=== PATIENT | female | born 1945 | race Caucasian/White ===

== ENCOUNTER 2016-11-18 08:33 | Emergency (ER) | payer OTHER ==
[~2016-11-18] VITALS: Ht 165.1 cm; Wt 127.9 kg
[~2016-11-18 08:33] MED LIST: AMOX500C3 PO; FLVHFA44 INH; L-ME1CAP3 PO; LEVO125T72 PO; LISI40TA PO; NRN800 PO; TRIA37.5 PO
[2016-11-18 08:35] VITALS: TEMP 36.7; Ht 165.1 cm; Wt 127.9 kg
[2016-11-18] MEDS ORDERED: MDRDP21 (08:50)
--- NOTE | 2016-11-18 09:30 | EMERGENCY ROOM VISIT NOTE ---
History Report prepared by Nani: Tom Ann Under the Supervision of: Dr. Helena Booker M.D. First contact with patient: 08:46 Chief Complaint: OTHER COMPLAINT Stated Complaint: RINGING/BUZZING IN EARS, HEADACHE History of Present Illness The patient is a 71 year old female who presents to the Emergency Room with complaints of persistent ringing in her bilateral ears for the past three weeks. The patient also complains of a headache today. The patient experienced some dizziness two weeks ago, which resolved. She denies any visual changes. The patient is not sure what caused the ringing in her ears. The patient was on a six day Prednisone taper from her primary care office, which she just finished. She has not had any relief. The patient did not have any imaging studies when she was seen by her PCP's office. The patient is pre-diabetic and has a history of neuropathy. Source of History: patient Onset: three weeks Position: ear (bilateral) Quality: other (ringing) Timing: other (persistent) Associated Symptoms: + headache Review of Systems See HPI for pertinent positives & negatives. A total of 10 systems reviewed and were otherwise negative. Past Medical & Surgical Medical Problems: (1) CARDIOMEGALY (2) DIAB ELLEN WO COMPL, TYPE II OR UNSPEC TYPE, NOT UNCNTRLD (3) HYPERLIPIDEMIA NEC/NOS (4) HYPERTENSION NOS (5) HYPOTHYROIDISM NOS (6) OBESITY, NOS (7) Right Knee DJD Family History Cancer Gallbladder disease Social History Smoking Status: Never Smoker Alcohol Use: none Drug Use: none Marital Status: Housing Status: lives alone Occupation Status: retired Current/Historical Medications Scheduled Fluticasone Propionate (Flovent Hfa), 2 PUFFS INH HS Gabapentin (Gabapentin), 800 MG PO TID L-Methylfolate W/ Algae-Vitami (Metanx), 1 TAB PO BID Levothyroxine Sodium (Synthroid), 250 MCG PO 2XWK Levothyroxine Sodium (Synthroid), 125 MCG PO 5XD Lisinopril (Zestril), 40 MG PO QAM Prednisone (Prednisone), 10 MG PO DAILY Triamterene/Hctz (Dyazide 37.5MG/25MG), 1 CAP PO QAM Scheduled PRN Amoxicillin (Amoxil), 4 CAP PO UD PRN for PRE DENTAL PROCEDURE Lorazepam (Ativan), 0.5 MG PO TID PRN for TINNITUS Miscellaneous Medications Methylprednisolone (Methylprednisolone Dose P) Allergies Coded Allergies: Adhesives (Verified Adverse Reaction, Mild, RASH, 11/18/16) Physical Exam Vital Signs Date Time Temp Pulse Resp B/P Pulse Ox O2 Delivery O2 Flow Rate FiO2 11/18/16 14:48 62 17 183/87 95 11/18/16 13:49 65 16 185/92 96 Room Air 11/18/16 12:12 56 19 169/104 96 Room Air 11/18/16 11:19 51 16 153/87 95 Room Air 11/18/16 10:31 55 11/18/16 10:31 61 16 149/63 97 Room Air 11/18/16 09:44 56 15 166/85 96 Room Air 11/18/16 08:35 36.7 66 16 144/82 98 Room Air Physical Exam Vital signs reviewed. General: Well-appearing female, in no significant distress. HEENT: No scleral icterus, PERRLA, neck supple. Atraumatic. TMs are clear bilaterally. Cardiovascular: Regular rate and rhythm, no extra sounds. Pulmonary: Clear to auscultation bilaterally, normal work of breathing. Abdomen: Soft, nontender, nondistended, positive bowel sounds. Musculoskeletal: Atraumatic, no peripheral edema. Neurologic: Patient awake alert and oriented x 3, full strength in all 4 extremities. Cranial nerves 2 through 12 grossly intact. Skin: Warm, dry, no rash Medical Decision & Procedures ER Provider Diagnostic Interpretation: CT results as stated below per my review and radiologist interpretation: CT OF THE HEAD WITHOUT CONTRAST CLINICAL HISTORY: Tinnitus. Headache. COMPARISON STUDY: No previous studies for comparison. CT DOSE: 614.27 mGy.cm TECHNIQUE: Helical axial images of the head were obtained without IV contrast. Automated exposure control was utilized for the study. FINDINGS: No acute intracranial hemorrhage, midline shift or mass effect is present. Ventricular system is normal. The basilar cisterns are patent. There are no extra-axial collections. Rodriguez-white differentiation is maintained. There are no findings to suggest acute dural sinus thrombosis or acute territorial infarct. There is no calvarial fracture. Visualized portions of the sinuses and the mastoid air cells are clear with exception of a few opacified ethmoid air cells. IMPRESSION: No acute intracranial findings. Electronically signed by: Rashaun Sorensen M.D. 11/18/2016 10:46 AM Dictated Date/Time: 11/18/2016 10:44 AM Laboratory Results 11/18/16 10:12 Red Blood Count 4.59, Mean Corpuscular Volume 90.4, Mean Corpuscular Hemoglobin 31.2, Mean Corpuscular Hemoglobin Concent 34.5, Mean Platelet Volume 9.7, Neutrophils (%) (Auto) 62.7, Lymphocytes (%) (Auto) 26.8, Monocytes (%) (Auto) 7.9, Eosinophils (%) (Auto) 1.5, Basophils (%) (Auto) 0.8, Neutrophils # (Auto) 4.62, Lymphocytes # (Auto) 1.97, Monocytes # (Auto) 0.58, Eosinophils # (Auto) 0.11, Basophils # (Auto) 0.06 11/18/16 10:12 Test 11/18/16 10:12 11/18/16 11:18 White Blood Count 7.36 K/uL (4.8-10.8) Red Blood Count 4.59 M/uL (4.2-5.4) Hemoglobin 14.3 g/dL (12.0-16.0) Hematocrit 41.5 % (37-47) Mean Corpuscular Volume 90.4 fL (80-100) Mean Corpuscular Hemoglobin 31.2 pg (25-34) Mean Corpuscular Hemoglobin Concent 34.5 g/dl (32-36) Platelet Count 199 K/uL (130-400) Mean Platelet Volume 9.7 fL (7.4-10.4) Neutrophils (%) (Auto) 62.7 % Lymphocytes (%) (Auto) 26.8 % Monocytes (%) (Auto) 7.9 % Eosinophils (%) (Auto) 1.5 % Basophils (%) (Auto) 0.8 % Neutrophils # (Auto) 4.62 K/uL (1.4-6.5) Lymphocytes # (Auto) 1.97 K/uL (1.2-3.4) Monocytes # (Auto) 0.58 K/uL (0.11-0.59) Eosinophils # (Auto) 0.11 K/uL (0-0.5) Basophils # (Auto) 0.06 K/uL (0-0.2) RDW Standard Deviation 48.2 fL (36.4-46.3) RDW Coefficient of Variation 14.6 % (11.5-14.5) Immature Granulocyte % (Auto) 0.3 % Immature Granulocyte # (Auto) 0.02 K/uL (0.00-0.02) Anion Gap 8.0 mmol/L (3-11) Est Creatinine Clear Calc Drug Dose 73.2 ml/min Estimated GFR () 69.8 Estimated GFR (Non- 60.3 BUN/Creatinine Ratio 28.1 (10-20) Calcium Level 9.6 mg/dl (8.5-10.1) Magnesium Level 1.8 mg/dl (1.8-2.4) Total Bilirubin 0.5 mg/dl (0.2-1) Direct Bilirubin 0.1 mg/dl (0-0.2) Aspartate Amino Transf (AST/SGOT) 10 U/L (15-37) Alanine Aminotransferase (ALT/SGPT) 27 U/L (12-78) Alkaline Phosphatase 84 U/L (45-117) Total Creatine Kinase 64 U/L (26-192) Creatine Kinase MB 1.8 ng/ml (0.5-3.6) Creatine Kinase MB Ratio 2.8 (0-3.0) Total Protein 7.1 gm/dl (6.4-8.2) Albumin 3.9 gm/dl (3.4-5.0) Urine Color YELLOW Urine Appearance CLEAR (CLEAR) Urine pH 8.0 (4.5-7.5) Urine Specific [place] 1.005 (1.000-1.030) Urine Protein NEG (NEG) Urine Glucose (UA) NEG (NEG) Urine Ketones NEG (NEG) Urine Occult Blood NEG (NEG) Urine Nitrite NEG (NEG) Urine Bilirubin NEG (NEG) Urine Urobilinogen NEG (NEG) Urine Leukocyte Esterase TRACE (NEG) Urine WBC (Auto) 0 /hpf (0-5) Urine RBC (Auto) 0-4 /hpf (0-4) Urine Hyaline Casts (Auto) 0 /lpf (0-5) Urine Epithelial Cells (Auto) 0-5 /lpf (0-5) Urine Bacteria (Auto) NEG (NEG) Laboratory results per my review. Medications Administered Medications (Trade) Dose Ordered Sig/Darin Route Start Time Stop Time Status Last Admin Dose Admin Methylprednisolone Sodium Succinate (Solu-Medrol IV) 125 mg NOW STAT IV 2/7/17 10:43 11/18/16 10:44 DC 11/18/16 11:19 125 MG Lorazepam (Ativan Inj) 1 mg NOW STAT IV 11/18/16 13:37 11/18/16 13:38 DC 11/18/16 13:45 1 MG ED Course 0925: Past medical records reviewed. The patient was evaluated in room A11b. A complete history and physical examination was performed. 1043: Solu-Medrol 125 mg IV. 1330: Reassessed the patient. Discussed the findings with her. She verbalized understanding and agreement of the treatment plan. The patient is ready for discharge. 1337: Ativan 1 mg IV. Medical Decision Differential diagnosis: Etiologies such as migraine headache, meningitis, sinusitis, CO exposure, ICH, SAH, infection, tumor, headache, sinus thrombosis, arterial dissection, as well as others were entertained. This patient was evaluated and appeared to be in no significant distress. Physical examination was performed and reveals no specific findings. The patient was medicated with IV Solu-Medrol. CT scan of the head was performed and reveals no evidence of acute intracranial abnormality. The patient felt as though her symptoms improve temporarily but had returned. She was given IV Ativan. Laboratory work is fairly unrevealing. Patient was advised of the findings. She was discharged to the care of her family. She was placed on a prednisone taper and given when necessary Ativan. ENT follow-up was arranged with Dr. Stratton's office. She expressed understanding of the plan and agrees. She will return to the ER for worsening of symptoms or any medical concerns. Impression Primary Impression: Tinnitus, bilateral Scribe Attestation The scribe's documentation has been prepared under my direction and personally reviewed by me in its entirety. I confirm that the note above accurately reflects all work, treatment, procedures, and medical decision making performed by me. Departure Information Dispostion Home / Self-Care Prescriptions Lorazepam (ATIVAN) 0.5 Mg Tab 0.5 MG PO TID Y for TINNITUS MDD 3 TABS, #20 TAB Prov: Helena Booker M.D. 11/18/16 Prednisone (Prednisone) 10 Mg Tab 10 MG PO DAILY, #31 TAB Prednisone 40 mg for 4 days, 30 mg for 3 days, 20 mg for 2 days, 10 mg for 2 days. Prov: Helena Booker M.D. 11/18/16 Referrals Houston Nicolas M.D. (PCP) Forms HOME CARE DOCUMENTATION FORM, IMPORTANT VISIT INFORMATION, WORK / SCHOOL INSTRUCTIONS Patient Instructions My [facility], Tinnitus Additional Instructions Diagnosis: Tinnitus Prednisone 40 mg daily for 4 more days, 30 mg daily for 3 days, 20 mg daily for 2 days, 10 mg daily for 2 days. Ativan 0.5 mg 3 times daily as needed. Drink plenty of clear fluids. Follow-up with ENT as arranged by case management. Follow-up with your physician for reevaluation this week. Return to the ER for worsening of symptoms or any medical concerns.
[2016-11-18 10:20] LABS: BASO % 0.8 %; BASO ABS # 0.06 K/uL (0-0.2); COMPLETE YES; EOS % 1.5 %; HEMATOCRIT 41.5 % (37-47); IG% 0.3 %; LYMPH % 26.8 %; LYMPH ABS # 1.97 K/uL (1.2-3.4); MEAN CELL VOLUME 90.4 fL (80-100); MEAN CORPUSCULAR HEMOGLOBIN 31.2 pg (25-34); MEAN CORPUSCULAR HGB CONC 34.5 g/dl (32-36); MEAN PLATELET VOLUME 9.7 fL (7.4-10.4); MONO % 7.9 %; NEUT % 62.7 %; PLATELET COUNT 199 K/uL (130-400); RED BLOOD COUNT 4.59 M/uL (4.2-5.4); WHITE BLOOD COUNT 7.36 K/uL (4.8-10.8)
[2016-11-18] MEDS ORDERED: METHYLPREDNISOLONE 125 MG VIAL IV STA (10:43)
[2016-11-18 10:44] LABS: BUN/CREATININE RATIO 28.1 (10-20); CALCIUM 9.6 mg/dl (8.5-10.1); CREATININE 0.95 mg/dl (0.60-1.20); MAGNESIUM 1.8 mg/dl (1.8-2.4); POTASSIUM 4.1 mmol/L (3.5-5.1)
--- NOTE | 2016-11-18 10:48 | DIAGNOSTIC IMAGING REPORT ---
CT OF THE HEAD WITHOUT CONTRAST CLINICAL HISTORY: Tinnitus. Headache. COMPARISON STUDY: No previous studies for comparison. CT DOSE: 614.27 mGy.cm TECHNIQUE: Helical axial images of the head were obtained without IV contrast. Automated exposure control was utilized for the study. FINDINGS: No acute intracranial hemorrhage, midline shift or mass effect is present. Ventricular system is normal. The basilar cisterns are patent. There are no extra-axial collections. Rodriguez-white differentiation is maintained. There are no findings to suggest acute dural sinus thrombosis or acute territorial infarct. There is no calvarial fracture. Visualized portions of the sinuses and the mastoid air cells are clear with exception of a few opacified ethmoid air cells. IMPRESSION: No acute intracranial findings. Electronically signed by: Rashaun Sorensen M.D. 11/18/2016 10:46 AM Dictated Date/Time: 11/18/2016 10:44 AM
[2016-11-18 10:49] LABS: CKMB/CK RATIO 2.8 (0-3.0)
[2016-11-18 11:34] LABS: URINE APPEARANCE CLEAR (CLEAR); URINE BILIRUBIN NEG (NEG); URINE COLOR YELLOW; URINE EPITHELIAL CELL AUTO 0-5 /lpf (0-5); URINE NITRITE NEG (NEG); URINE SPECIFIC GRAVITY 1.005 (1.000-1.030); UROBILINOGEN NEG (NEG); ZZUR CULT IF INDIC CLEAN CATCH NO
[2016-11-18 11:39] LABS: MANUAL MICROSCOPIC REQUIRED? NO; REVIEW REQ? NO
[2016-11-18] MEDS ORDERED: LORAZEPAM 2 MG/ML 1 ML VIAL IV STA (13:37)
[2016-11-18] MEDS ORDERED: PRED10TA PO (14:27)
[2016-11-18] MEDS ORDERED: LORA-741 PO (14:27)
[2016-11-18 14:48] VITALS: BP 183/87; PULSE 62; O2SAT 95
[2017-03-03] MEDS ORDERED: OXYC-57 PO (10:06)
[2017-03-03] MEDS ORDERED: PRED10TA PO (10:06)
== END 2016-11-18 14:49 | disposition home or self-care (01) ==
LOC: C.EDB 08:34 → C.EDA 14:49
DX: H93.13 Tinnitus, bilateral (principal); E11.9 Type 2 diabetes mellitus without complications; E78.5 Hyperlipidemia, unspecified; E03.9 Hypothyroidism, unspecified

== ENCOUNTER 2017-01-23 08:38 | Emergency (ER) | payer OTHER ==
[~2017-01-23] VITALS: Ht 165.1 cm; Wt 132.0 kg
[~2017-01-23 08:38] MED LIST changes: +MDRDP21; +PRED10TA PO
[2017-01-23 08:43] VITALS: TEMP 36.4; Ht 165.1 cm; Wt 132.0 kg
[2017-01-23 09:38] LABS: BASO % 0.7 %; BASO ABS # 0.05 K/uL (0-0.2); COMPLETE YES; EOS % 3.1 %; HEMATOCRIT 39.4 % (37-47); IG% 0.1 %; LYMPH % 34.4 %; LYMPH ABS # 2.33 K/uL (1.2-3.4); MEAN CELL VOLUME 89.7 fL (80-100); MEAN CORPUSCULAR HEMOGLOBIN 30.8 pg (25-34); MEAN CORPUSCULAR HGB CONC 34.3 g/dl (32-36); MEAN PLATELET VOLUME 10.6 fL (7.4-10.4); MONO % 8.3 %; NEUT % 53.4 %; PLATELET COUNT 172 K/uL (130-400); RED BLOOD COUNT 4.39 M/uL (4.2-5.4); WHITE BLOOD COUNT 6.77 K/uL (4.8-10.8)
[2017-01-23 09:49] LABS: URINE APPEARANCE CLEAR (CLEAR); URINE BILIRUBIN NEG (NEG); URINE COLOR YELLOW; URINE EPITHELIAL CELL AUTO 20-30 /lpf (0-5); URINE NITRITE NEG (NEG); UROBILINOGEN NEG (NEG); ZZUR CULT IF INDIC CLEAN CATCH NO
--- NOTE | 2017-01-23 09:55 | DIAGNOSTIC IMAGING REPORT ---
CT OF THE ABDOMEN AND PELVIS WITHOUT CONTRAST, STONE PROTOCOL CLINICAL HISTORY: Right flank pain. COMPARISON STUDY: PET/CT November 22, 2014. TECHNIQUE: Helical axial images of the abdomen and pelvis were obtained without IV or oral contrast according to renal stone protocol. FINDINGS: Visualized portions of the lower chest demonstrate a stable 7 mm right lower lobe nodule since CT of November 09, 2014. This is benign given stability. Mild cardiomegaly is noted. No renal, ureteral or bladder calculi are present. Evaluation of the remainder of the abdomen and pelvis is suboptimal on this unenhanced exam. The appendix is normal. Unenhanced images of the liver, spleen, adrenal glands and pancreas are normal. There is no evidence for a bowel obstruction. There are post surgical finding within the spine. There is sigmoid diverticulosis without evidence for acute diverticulitis. There is no lymphadenopathy. IMPRESSION: 1. No urinary calculi or hydronephrosis. 2. No acute process within the abdomen or pelvis on unenhanced exam. 3. Sigmoid diverticulosis without evidence for acute diverticulitis. Electronically signed by: Rashaun Sorensen M.D. 01/23/2017 9:52 AM Dictated Date/Time: 01/23/2017 9:45 AM
[2017-01-23 10:01] LABS: MANUAL MICROSCOPIC REQUIRED? NO; REVIEW REQ? NO
[2017-01-23 10:39] LABS: ALKALINE PHOSPHATASE 84 U/L (45-117); ALT/SGPT 28 U/L (12-78); BLOOD UREA NITROGEN 21 mg/dl (7-18); BUN/CREATININE RATIO 19.1 (10-20); CALCIUM 9.6 mg/dl (8.5-10.1); CARBON DIOXIDE 28 mmol/L (21-32); CHLORIDE 107 mmol/L (98-107); GLUCOSE 156 mg/dl (70-99); SODIUM 143 mmol/L (136-145)
[2017-01-23] MEDS ORDERED: NORCO 5/325MG HOME PACK PO ONE (11:00)
[2017-01-23 11:28] VITALS: BP 133/82; PULSE 54; O2SAT 96
--- NOTE | 2017-01-23 15:47 | EMERGENCY ROOM VISIT NOTE ---
History Report prepared by Nani: Matt Rodriguez Under the Supervision of: Dr. Abraham Berg M.D. First contact with patient: 08:53 Chief Complaint: BACK PAIN Stated Complaint: BACK PAIN History of Present Illness The patient is a 71 year old female who presents to the Emergency Room with complaints of constant right sided back pain starting a few weeks ago. The patient currently rates her discomfort as an 8/10 in severity. The patient states that she has been having this back pain for a couple of weeks now. The patient states that this pain has gotten worse, and it is now also located in the center of her back. The patient states that she also had vertigo recently, and for this she was vomiting leading to some rib pain from vomiting. She additionally states that she has a history of fused lumbar vertebrae. The patient states that the pain is worsened when walking, and sometimes her breathing will make it hurt more as well. The patient states that she has been taking ibuprofen, and she was not doing anything to exacerbate the pain. The patient denies any history of kidney stones, and she denies any family history of back troubles or kidney stones. She also states that she has a history of being prediabetic. Pt denies trauma, LOC, headache, neck pain, fevers, chills, malaise, night sweats, weight loss, history of malignancy, chest pain, breathing difficulties, abdominal pain, saddle paraesthesias, bowel or bladder dysfunction, numbness, weakness, urinary symptoms, or other complaints. Source of History: patient Onset: a few weeks ago Position: back (lower) Symptom Intensity: 8/10 Timing: constant Modifying Factors (Worsening): other (walking) Associated Symptoms: + vomiting Review of Systems See HPI for pertinent positives and negatives. A total of ten systems were reviewed and were otherwise negative. Past Medical & Surgical Medical Problems: (1) CARDIOMEGALY (2) DIAB ELLEN WO COMPL, TYPE II OR UNSPEC TYPE, NOT UNCNTRLD (3) HYPERLIPIDEMIA NEC/NOS (4) HYPERTENSION NOS (5) HYPOTHYROIDISM NOS (6) OBESITY, NOS (7) Right Knee DJD Family History Cancer Gallbladder disease Social History Smoking Status: Never Smoker Alcohol Use: none Drug Use: none Marital Status: Housing Status: lives alone Occupation Status: retired Current/Historical Medications Scheduled Fluticasone Propionate (Flovent Hfa), 2 PUFFS INH HS Gabapentin (Gabapentin), 800 MG PO TID L-Methylfolate W/ Algae-Vitami (Metanx), 1 TAB PO BID Levothyroxine Sodium (Synthroid), 250 MCG PO 2XWK Levothyroxine Sodium (Synthroid), 125 MCG PO 5XD Lisinopril (Zestril), 40 MG PO QAM Prednisone (Prednisone), 10 MG PO DAILY Triamterene/Hctz (Dyazide 37.5MG/25MG), 1 CAP PO QAM Scheduled PRN Amoxicillin (Amoxil), 4 CAP PO UD PRN for PRE DENTAL PROCEDURE Allergies Coded Allergies: Adhesives (Verified Adverse Reaction, Mild, RASH, 11/18/16) Physical Exam Vital Signs Date Time Temp Pulse Resp B/P Pulse Ox O2 Delivery O2 Flow Rate FiO2 01/23/17 11:28 54 18 133/82 96 01/23/17 08:43 36.4 63 18 171/106 97 Room Air Physical Exam GENERAL: Awake, alert, well-appearing, in no distress HENT: Normocephalic, atraumatic. Oropharynx unremarkable. EYES: Normal conjunctiva. Sclera non-icteric. NECK: Supple. No nuchal rigidity. FROM. No JVD. RESPIRATORY: Clear to auscultation. CARDIAC: Regular rate, normal rhythm. Extremities warm and well perfused. Pulses equal. ABDOMEN: Soft, non-distended. No tenderness to palpation. No rebound or guarding. No masses. RECTAL: Deferred. MUSCULOSKELETAL: Tenderness to palpation in the right CVA are and right lower ribs. Chest examination reveals no tenderness. The back is symmetrical on inspection without obvious abnormality. No joint edema. LOWER EXTREMITIES: Calves are equal size bilaterally and non-tender. No edema. No discoloration. NEURO: Normal sensorium. No sensory or motor deficits noted. SKIN: No rash or jaundice noted. Medical Decision & Procedures ER Provider Diagnostic Interpretation: Radiology results as stated below per my review and radiologist interpretation CT OF THE ABDOMEN AND PELVIS WITHOUT CONTRAST, STONE PROTOCOL CLINICAL HISTORY: Right flank pain. COMPARISON STUDY: PET/CT November 22, 2014. TECHNIQUE: Helical axial images of the abdomen and pelvis were obtained without IV or oral contrast according to renal stone protocol. FINDINGS: Visualized portions of the lower chest demonstrate a stable 7 mm right lower lobe nodule since CT of November 09, 2014. This is benign given stability. Mild cardiomegaly is noted. No renal, ureteral or bladder calculi are present. Evaluation of the remainder of the abdomen and pelvis is suboptimal on this unenhanced exam. The appendix is normal. Unenhanced images of the liver, spleen, adrenal glands and pancreas are normal. There is no evidence for a bowel obstruction. There are post surgical finding within the spine. There is sigmoid diverticulosis without evidence for acute diverticulitis. There is no lymphadenopathy. IMPRESSION: 1. No urinary calculi or hydronephrosis. 2. No acute process within the abdomen or pelvis on unenhanced exam. 3. Sigmoid diverticulosis without evidence for acute diverticulitis. Electronically signed by: Rashaun Sorensen M.D. 01/23/2017 9:52 AM Dictated Date/Time: 01/23/2017 9:45 AM Laboratory Results 01/23/17 09:20 Red Blood Count 4.39, Mean Corpuscular Volume 89.7, Mean Corpuscular Hemoglobin 30.8, Mean Corpuscular Hemoglobin Concent 34.3, Mean Platelet Volume 10.6, Neutrophils (%) (Auto) 53.4, Lymphocytes (%) (Auto) 34.4, Monocytes (%) (Auto) 8.3, Eosinophils (%) (Auto) 3.1, Basophils (%) (Auto) 0.7, Neutrophils # (Auto) 3.61, Lymphocytes # (Auto) 2.33, Monocytes # (Auto) 0.56, Eosinophils # (Auto) 0.21, Basophils # (Auto) 0.05 01/23/17 09:20 Test 01/23/17 09:20 White Blood Count 6.77 K/uL (4.8-10.8) Red Blood Count 4.39 M/uL (4.2-5.4) Hemoglobin 13.5 g/dL (12.0-16.0) Hematocrit 39.4 % (37-47) Mean Corpuscular Volume 89.7 fL (80-100) Mean Corpuscular Hemoglobin 30.8 pg (25-34) Mean Corpuscular Hemoglobin Concent 34.3 g/dl (32-36) Platelet Count 172 K/uL (130-400) Mean Platelet Volume 10.6 fL (7.4-10.4) Neutrophils (%) (Auto) 53.4 % Lymphocytes (%) (Auto) 34.4 % Monocytes (%) (Auto) 8.3 % Eosinophils (%) (Auto) 3.1 % Basophils (%) (Auto) 0.7 % Neutrophils # (Auto) 3.61 K/uL (1.4-6.5) Lymphocytes # (Auto) 2.33 K/uL (1.2-3.4) Monocytes # (Auto) 0.56 K/uL (0.11-0.59) Eosinophils # (Auto) 0.21 K/uL (0-0.5) Basophils # (Auto) 0.05 K/uL (0-0.2) RDW Standard Deviation 46.0 fL (36.4-46.3) RDW Coefficient of Variation 14.1 % (11.5-14.5) Immature Granulocyte % (Auto) 0.1 % Immature Granulocyte # (Auto) 0.01 K/uL (0.00-0.02) Urine Color YELLOW Urine Appearance CLEAR (CLEAR) Urine pH 5.0 (4.5-7.5) Urine Specific [place] 1.010 (1.000-1.030) Urine Protein NEG (NEG) Urine Glucose (UA) NEG (NEG) Urine Ketones NEG (NEG) Urine Occult Blood NEG (NEG) Urine Nitrite NEG (NEG) Urine Bilirubin NEG (NEG) Urine Urobilinogen NEG (NEG) Urine Leukocyte Esterase MODERATE (NEG) Urine WBC (Auto) 1-5 /hpf (0-5) Urine RBC (Auto) 0-4 /hpf (0-4) Urine Hyaline Casts (Auto) 0 /lpf (0-5) Urine Epithelial Cells (Auto) 20-30 /lpf (0-5) Urine Bacteria (Auto) NEG (NEG) Anion Gap 8.0 mmol/L (3-11) Est Creatinine Clear Calc Drug Dose 64.4 ml/min Estimated GFR () 58.5 Estimated GFR (Non- 50.5 BUN/Creatinine Ratio 19.1 (10-20) Calcium Level 9.6 mg/dl (8.5-10.1) Total Bilirubin 0.4 mg/dl (0.2-1) Direct Bilirubin mg/dl (0-0.2) Aspartate Amino Transf (AST/SGOT) U/L (15-37) Alanine Aminotransferase (ALT/SGPT) 28 U/L (12-78) Alkaline Phosphatase 84 U/L (45-117) Total Protein 6.9 gm/dl (6.4-8.2) Albumin 3.7 gm/dl (3.4-5.0) Lipase 237 U/L (73-393) Laboratory results reviewed by me Medications Administered Medications (Trade) Dose Ordered Sig/Darin Route Start Time Stop Time Status Last Admin Dose Admin Acetaminophen/ Hydrocodone Bitart ([place] 5/325mg Home Pack) 1 homepack UD ONCE PO 01/23/17 11:00 01/23/17 11:01 DC 01/23/17 11:20 1 HOMEPACK ED Course 0906: The patient was evaluated in room B10. A complete history and physical exam was performed. 1047: I reevaluated the patient. Discussed results and discharge instructions: She verbalized understanding and agreement. The patient is ready for discharge. 1100: [place] 3/325mg 1 Home Pack PO Medical Decision Triage Nursing notes reviewed. The patient's presentation and history were concerning for right flank pain. Etiologies such as renal colic, musculoskeletal, appendicitis, diverticulitis, mesenteric ischemia, aortic pathology, infections, inflammatory bowel disease, PUD, biliary pathology, UTI, as well as others were entertained. The patient was evaluated. She was uncomfortable but declined analgesia. A CBC , urinalysis, chemistry panel, LFTs, and lipase were unremarkable minus the potassium as this was hemolyzed. She has normal renal function and has no reason for potassium abnormalities of the patient did not have a repeat lab stick. CT imaging was performed and was unremarkable. On reassessment the patient was informed. I discussed analgesia. The patient did not want a big prescription. She notes having back issues before and has done okay with occasional doses of prednisone which she has at home. I did advise her to be careful with this as her glucose is minimally elevated. She is aware of the hyperglycemic issues with prednisone. The patient was given a home pack [place] which she accepted. If she worsens at all she will come back to the department for reevaluation. I gave my usual and customary discussion regarding this issue. By the evaluation outlined above other emergent etiologies such as those listed in the differential, as well as others, were deemed relatively unlikely. The patient was informed about the findings as listed above. All questions were answered and she was pleased with the treatment. Return instructions were outlined and the patient was discharged in stable condition. The patient was referred to her PCP for follow-up next week for a recheck of the current condition. The chart was completed utilizing [employer] Speech voice recognition software. Grammatical errors, random word insertions, pronoun errors, and incomplete sentences are an occasional consequence of this system due to software limitations, ambient noise, and hardware issues. Any formal questions or concerns about the content, text, or information contained within the body of this dictation should be directly addressed to the physician for clarification. Impression Primary Impression: Right flank pain Scribe Attestation The scribe's documentation has been prepared under my direction and personally reviewed by me in its entirety. I confirm that the note above accurately reflects all work, treatment, procedures, and medical decision making performed by me. Departure Information Dispostion Home / Self-Care Referrals Houston Nicolas M.D. (PCP) Forms HOME CARE DOCUMENTATION FORM, IMPORTANT VISIT INFORMATION Patient Instructions My [facility] Additional Instructions BACK PAIN INSTRUCTIONS: Hydrocodone/acetaminophen 5/325mg: Take 1-2 pills every 6 hours as needed for pain. Avoid additional Acetaminophen/Tylenol, alcohol, operating machinery or dangerous equipment, working on ladders or roofs, DRIVING, or situations where being under the influence may be dangerous. It is recommended to use a stool softener such as Colace, 100mg twice daily while taking this medication to avoid constipation. Ibuprofen(Motrin, Advil) may be used for fever or pain. Use 600mg every six hours as needed. Take with food. Avoid using more than 2400mg in a 24 hour period. Do not use 2400mg per day for more than three consecutive days without physician direction. Prolonged inappropriate use can lead to stomach upset or ulcers. This medication can be taken if you need to drive, work, or perform activities which may be dangerous when taking narcotic pain medication. (AND/OR) Acetaminophen(Tylenol) may be used for fever or pain. Use 1000mg every six hours as needed. Avoid using more than 4000mg in a 24 hour period. This medication can be taken if you need to drive, work, or perform activities which may be dangerous when taking narcotic pain medication. Rest and avoid heavy lifting until your symptoms resolve and then gradually return to full activity. A good rule of thumb is if it hurts your back to perform a certain activity, then it should be avoided until you are healthy again. A heating pad, warm compresses, or a hot shower may help with tight muscles and can be done several times a day as needed. Continue current medications. Return to the ER immediately for any numbness, tingling, severe pain, loss of control of your bowels or bladder, inability to walk, or as needed. Follow up with your primary care physician next week for a recheck of your current condition.
[2017-03-03] MEDS ORDERED: OXYC-57 PO (10:06)
[2017-03-03] MEDS ORDERED: PRED10TA PO (10:06)
== END 2017-01-23 11:30 | disposition home or self-care (01) ==
LOC: C.EDB 08:40
DX: R10.30 Lower abdominal pain, unspecified (principal); Z98.1 Arthrodesis status; E11.9 Type 2 diabetes mellitus without complications; E78.5 Hyperlipidemia, unspecified; I10 Essential (primary) hypertension; E03.9 Hypothyroidism, unspecified; E66.9 Obesity, unspecified; Z68.42 Body mass index [BMI] 45.0-49.9, adult; Z80.9 Family history of malignant neoplasm, unspecified; Z79.899 Other long term (current) drug therapy

== ENCOUNTER → 2017-03-05 | Day surgery (SDC) | payer OTHER ==
[2017-03-03 10:06] VITALS: Ht 168.9 cm; Wt 125.0 kg
[~2017-03-05] VITALS: Ht 168.9 cm; Wt 125.0 kg
[~2017-03-05] MED LIST changes: +DEXAMETHASONE SOD INJ 4 MG/ML VIAL ONE; +LIDOCAINE HCL 1% MPF 5 ML VIAL ONE; -MDRDP21; +OXYC-57 PO
--- NOTE | 2017-03-05 08:46 | History & Physical Bridge - [place] ---
H&P Re-Evaluation Bridge Note: I have examined the patient, reviewed the History & Physical and in the interval since the performance of the History & Physical I have noted the following changes of clinical significance: No changes noted
--- NOTE | 2017-03-05 09:09 | Discharge Instructions-SurgCtr ---
Discharge Instructions Date of Service March 05, 2017. Visit Reason for Visit: Spondylolisthesis Discharge Discharge Diagnosis / Problem: stenosis Discharge Goals Goal(s): Decrease discomfort Activity Recommendations Activity Limitations: resume your previous activity Anesthesia . Post Anesthesia Instructions: If you have had General Anesthesia or IV Sedation: * Do not drive today. * Resume driving when surgeon permits. * Do not make important decisions or sign legal documents today. * Call surgeon for: 1. Temperature elevations greater than 101 degrees F. 2. Uncontrollable pain. 3. Excessive bleeding. 4. Persistent nausea and vomiting. 5. Medication intolerance (nausea, vomiting or rash). * For nausea and vomiting use only clear liquids such as: tea, soda, bouillon until nausea subsides, then gradually increase diet as tolerated. * If you have any concerns or questions, call your surgeon's office. If physician is unavailable and it is an emergency, call 911 or go to the nearest emergency room. . Diet Recommendations Home Diet: no limitations Procedures Procedures Performed: L3-4 EPIDRURAL STEROID INJECTION Pending Studies Studies pending at discharge: no Medical Emergencies . Who to Call and When: Medical Emergencies: If at any time you feel your situation is an emergency, please call 911 immediately. . Non-Emergent Contact Non-Emergency issues call your: Surgeon Call Non-Emergent contact if: your pain is concerning you . . "Provider Documentation" section prepared by Abraham iHll. .
[2017-03-05 09:10] VITALS: BP 156/83; PULSE 58; TEMP 36.7; O2SAT 95
--- NOTE | 2017-03-05 09:10 | [facility] Post Operative Brief Note ---
Immediate Operative Summary Operative Date March 05, 2017. Pre-Operative Diagnosis SPONDYLOLITHESIS Post-Operative Diagnosis SAME Procedure(s) Performed L3-4 EPIDRURAL STEROID INJECTION Surgeon DR. Shi CHANG Break Up Worker Surgeon(s) 0 Estimated Blood Loss 0 Findings stenosis Complication(s) None Disposition Recovery Room / PACU
--- NOTE | 2017-03-05 09:35 | OPERATIVE REPORT ---
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 POSTOPERATIVE DIAGNOSIS: Same. PROCEDURE: Epidural steroid injection L3-4. SURGEON: Dr. Hill. MEDICAL OFFICE COORDINATOR: None. COMPLICATIONS: 0. BLOOD LOSS: 0. PROCEDURE: The patient was taken to [facility] minor procedure room at the surgical center, placed prone, scrubbed and prepped in the usual sterile fashion. We draped her off sterile. We used biplanar imaging. We were to advance the 22 gauge Tuohy needle to the epidural space at L3-L4. The patient tolerated well. We injected 2 mL of dexamethasone using an air acceptance or volume acceptance technique. She tolerated it well. Returned to PACU stable. No complications. I attest to the content of the Intraoperative Record and any orders documented therein. Any exceptio ns are noted below.
== END | disposition home or self-care (01) ==
LOC: X.SURG 07:44
PROVIDERS: ATTEND Orthopaedic Surgery Orthopaedic Surgery of the Spine
DX: M48.06 Spinal stenosis, lumbar region (principal)

== ENCOUNTER → 2017-03-20 | Outpatient (CLI) | payer OTHER ==
[~2017-03-20] MED LIST changes: -DEXAMETHASONE SOD INJ 4 MG/ML VIAL ONE; -LIDOCAINE HCL 1% MPF 5 ML VIAL ONE
[2017-03-20 12:22] LABS: ESTIMATED AVERAGE GLUCOSE 143 mg/dl; HA1C FLAG Normal (Normal)
[2017-03-20 12:49] LABS: ALKALINE PHOSPHATASE 78 U/L (45-117); ALT/SGPT 32 U/L (12-78); AST/SGOT 21 U/L (15-37); BLOOD UREA NITROGEN 21 mg/dl (7-18); BUN/CREATININE RATIO 18.8 (10-20); CALCIUM 9.4 mg/dl (8.5-10.1); CARBON DIOXIDE 23 mmol/L (21-32); CHLORIDE 106 mmol/L (98-107); CHOLESTEROL 154 mg/dl (0-200); GLUCOSE 183 mg/dl (70-99); SODIUM 141 mmol/L (136-145)
[2017-03-20 13:00] LABS: CHOLESTEROL/HDL RATIO 3.7; HDL CHOLESTEROL 42 mg/dl; LDL CHOLESTEROL CALCULATED 67 mg/dl; THYROID STIMULATING HORMONE 0.571 uIu/ml (0.300-4.500); TRIGLYCERIDES 224 mg/dl (0-150); VERY LOW DENSITY LIPOPROT CALC 45 mg/dl
== END | disposition home or self-care (01) ==
LOC: C.LABBFT 08:22
PROVIDERS: ATTEND Internal Medicine
DX: E11.9 Type 2 diabetes mellitus without complications (principal); E03.9 Hypothyroidism, unspecified

== ENCOUNTER 2017-05-05 12:21 | Emergency (ER) | payer OTHER ==
[~2017-05-05] VITALS: Ht 166.4 cm; Wt 129.5 kg
[~2017-05-05 12:21] MED LIST changes: -OXYC-57 PO
[2017-05-05 12:23] VITALS: TEMP 36.6; Ht 166.4 cm; Wt 129.5 kg
[2017-05-05 13:22] LABS: BASO % 0.6 %; BASO ABS # 0.06 K/uL (0-0.2); COMPLETE YES; EOS % 2.2 %; HEMATOCRIT 45.7 % (37-47); IG% 0.2 %; LYMPH % 29.9 %; LYMPH ABS # 2.81 K/uL (1.2-3.4); MEAN CORPUSCULAR HEMOGLOBIN 30.9 pg (25-34); MEAN CORPUSCULAR HGB CONC 32.8 g/dl (32-36); MEAN PLATELET VOLUME 9.8 fL (7.4-10.4); MONO % 8.7 %; NEUT % 58.4 %; PLATELET COUNT 224 K/uL (130-400); RED BLOOD COUNT 4.86 M/uL (4.2-5.4); WHITE BLOOD COUNT 9.41 K/uL (4.8-10.8)
--- NOTE | 2017-05-05 13:22 | EMERGENCY ROOM VISIT NOTE ---
History First contact with patient: 12:38 Chief Complaint: VAGINAL BLEEDING Stated Complaint: VAGINAL BLEEDING History of Present Illness The patient is a 72 year old female who presents to the Emergency Room with complaints of vaginal bleeding. The patient states that she noticed vaginal bleeding last night. She states that the airway is a small blood clot. She reports minimal sensation of cramping in the pelvis but denies any true pain. The patient experienced menopause 16 years ago and has not had any vaginal bleeding since. She has continued regular gynecological care and has had negative Pap smears. The patient denies any fever, chest pain or trouble breathing. She denies any urinary symptoms. She denies any hematochezia or melena. She denies any personal or family history of gynecological cancer. She has had a periumbilical hernia repair. Review of Systems A 10 system review of systems was completed with positives and pertinent negatives listed in the HPI. Past Medical/Surgical History Medical Problems: (1) Asthma (2) CARDIOMEGALY (3) DIAB ELLEN WO COMPL, TYPE II OR UNSPEC TYPE, NOT UNCNTRLD (4) Elbow fracture, right (5) HYPERLIPIDEMIA NEC/NOS (6) HYPERTENSION NOS (7) HYPOTHYROIDISM NOS (8) OBESITY, NOS (9) Right Knee DJD Surgical Problems: (1) H/O umbilical hernia repair (2) H/O wisdom tooth extraction (3) S/p total knee replacement, bilateral (4) Tarsal tunnel syndrome Family History Cancer Gallbladder disease Social History Smoking Status: Never Smoker Alcohol Use: none Drug Use: none Marital Status: Housing Status: lives alone Occupation Status: retired Current/Historical Medications Scheduled Fluticasone Propionate (Flovent Hfa), 2 PUFFS INH HS Gabapentin (Gabapentin), 800 MG PO BID L-Methylfolate W/ Algae-Vitami (Metanx), 1 TAB PO BID Levothyroxine Sodium (Synthroid), 250 MCG PO 2XWK Levothyroxine Sodium (Synthroid), 125 MCG PO 5XD Lisinopril (Zestril), 40 MG PO QAM Triamterene/Hctz (Dyazide 37.5MG/25MG), 1 CAP PO QAM Scheduled PRN Amoxicillin (Amoxil), 4 CAP PO UD PRN for PRE DENTAL PROCEDURE Prednisone Tab (Prednisone), 10 MG PO DIRECTED PRN for Pain Physical Exam Vital Signs Date Time Temp Pulse Resp B/P (MAP) Pulse Ox O2 Delivery O2 Flow Rate FiO2 05/05/17 14:04 51 18 147/89 98 05/05/17 12:23 36.6 68 16 139/79 95 Room Air Physical Exam VITALS: Vitals are noted on the nurse's note and reviewed by myself. Vital signs stable. GENERAL: This is a 72-year-old female, in no acute distress, nondiaphoretic, well-developed well-nourished. SKIN: The skin was without rashes, erythema, edema, or bruising. There is no tenting of the skin. Capillary reflex less than 2 seconds. HEAD: Normocephalic atraumatic. EARS: External auditory canals clear, tympanic membranes pearly thompson without erythema or effusion bilaterally. EYES: Pupils equal round and reactive to light and accommodation. Conjunctivae without injection, sclerae without icterus. Extraocular movements intact. NOSE: Patent, turbinates without inflammation or discharge. MOUTH: Mucous membranes moist. Tonsils are not enlarged. Pharynx without erythema or exudate. Uvula midline. Airway patent. Tongue does not deviate. NECK: Supple without nuchal rigidity. No JVD. HEART: Regular rate and rhythm without murmurs gallops or rubs. LUNGS: Clear to auscultation bilaterally without wheezes, rales or rhonchi. No retractions or accessory muscle use. ABDOMEN: Positive bowel sounds x 4. Soft, nontender, without masses or organomegaly. MUSCULOSKELETAL: No muscle atrophy, erythema, or edema noted. Full range of motion in all extremities. Strength 5/5 throughout. NEURO: Patient was alert and oriented to person place and time. No focal neurological deficits. Medical Decision & Procedures ER Provider Diagnostic Interpretation: PELVIC COMPLETE NON OB CLINICAL HISTORY: postmenopausal vaginal bleeding BLEEDING COMPARISON STUDY: None FINDINGS: The uterus measured 7.5 cm.. Several small myometrial fibroids measuring 1.1 and 1.4 cm. The endometrial stripe measured 6 mm.. The right ovary measured not well seen. The left ovary measured not well seen. There is no ultrasonographic evidence of ovarian torsion. It should be noted that ovarian torsion can be present with normal Doppler ultrasonographic findings. There was no evidence of pathologic free pelvic fluid. IMPRESSION: 2 small uterine fibroids. Mild endometrial prominence for age at 6 mm. Ovarian atrophy Laboratory Results 05/05/17 13:08 Red Blood Count 4.86, Mean Corpuscular Volume 94.0, Mean Corpuscular Hemoglobin 30.9, Mean Corpuscular Hemoglobin Concent 32.8, Mean Platelet Volume 9.8, Neutrophils (%) (Auto) 58.4, Lymphocytes (%) (Auto) 29.9, Monocytes (%) (Auto) 8.7, Eosinophils (%) (Auto) 2.2, Basophils (%) (Auto) 0.6, Neutrophils # (Auto) 5.49, Lymphocytes # (Auto) 2.81, Monocytes # (Auto) 0.82, Eosinophils # (Auto) 0.21, Basophils # (Auto) 0.06 05/05/17 13:08 Test 05/05/17 13:08 05/05/17 13:10 White Blood Count 9.41 K/uL (4.8-10.8) Red Blood Count 4.86 M/uL (4.2-5.4) Hemoglobin 15.0 g/dL (12.0-16.0) Hematocrit 45.7 % (37-47) Mean Corpuscular Volume 94.0 fL (80-100) Mean Corpuscular Hemoglobin 30.9 pg (25-34) Mean Corpuscular Hemoglobin Concent 32.8 g/dl (32-36) Platelet Count 224 K/uL (130-400) Mean Platelet Volume 9.8 fL (7.4-10.4) Neutrophils (%) (Auto) 58.4 % Lymphocytes (%) (Auto) 29.9 % Monocytes (%) (Auto) 8.7 % Eosinophils (%) (Auto) 2.2 % Basophils (%) (Auto) 0.6 % Neutrophils # (Auto) 5.49 K/uL (1.4-6.5) Lymphocytes # (Auto) 2.81 K/uL (1.2-3.4) Monocytes # (Auto) 0.82 K/uL (0.11-0.59) Eosinophils # (Auto) 0.21 K/uL (0-0.5) Basophils # (Auto) 0.06 K/uL (0-0.2) RDW Standard Deviation 49.6 fL (36.4-46.3) RDW Coefficient of Variation 14.4 % (11.5-14.5) Immature Granulocyte % (Auto) 0.2 % Immature Granulocyte # (Auto) 0.02 K/uL (0.00-0.02) Prothrombin Time 10.2 SECONDS (9.0-12.0) Prothromb Time International Ratio 1.0 (0.9-1.1) Activated Partial Thromboplast Time 24.0 SECONDS (21.0-31.0) Partial Thromboplastin Ratio 0.9 Anion Gap 6.0 mmol/L (3-11) Est Creatinine Clear Calc Drug Dose 63.3 ml/min Estimated GFR () 58.1 Estimated GFR (Non- 50.1 BUN/Creatinine Ratio 19.5 (10-20) Calcium Level 10.6 mg/dl (8.5-10.1) Total Bilirubin 0.6 mg/dl (0.2-1) Aspartate Amino Transf (AST/SGOT) 22 U/L (15-37) Alanine Aminotransferase (ALT/SGPT) 33 U/L (12-78) Alkaline Phosphatase 79 U/L (45-117) Total Protein 7.6 gm/dl (6.4-8.2) Albumin 4.1 gm/dl (3.4-5.0) Globulin 3.5 gm/dl (2.5-4.0) Albumin/Globulin Ratio 1.2 (0.9-2) Urine Color YELLOW Urine Appearance CLEAR (CLEAR) Urine pH 6.5 (4.5-7.5) Urine Specific [place] 1.018 (1.000-1.030) Urine Protein NEG (NEG) Urine Glucose (UA) NEG (NEG) Urine Ketones TRACE (NEG) Urine Occult Blood 2+ (NEG) Urine Nitrite NEG (NEG) Urine Bilirubin NEG (NEG) Urine Urobilinogen NEG (NEG) Urine Leukocyte Esterase NEG (NEG) Urine WBC (Auto) 1-5 /hpf (0-5) Urine RBC (Auto) 10-30 /hpf (0-4) Urine Hyaline Casts (Auto) 0 /lpf (0-5) Urine Epithelial Cells (Auto) 10-20 /lpf (0-5) Urine Bacteria (Auto) NEG (NEG) ED Course The patient was seen and examined. Previous visits were reviewed. The patient does not have a fever or leukocytosis. She does not have any significant electrolyte abnormality. INR was 1.0. Urinalysis reveals hematuria and is likely contamination. Ultrasound was obtained as above. The patient has what appears to be 2 small fibroids. The endometrial stripe was 6 mm. The patient presents to the emergency department with painless postmenopausal vaginal bleeding. The patient appears to have 2 small fibroids and this may account for the bleeding. She is hemodynamically stable. She does not have any significant discomfort. I discussed the case with Dr. Teixeira. He recommends that she follow-up with the office and she may need a biopsy. The patient was advised of this and instructed to call today or tomorrow. She should return to the ER with any worsening symptoms, lightheadedness, dizziness, worsening bleeding, pain The patient was also seen and examined by who agrees with the assessment and treatment plan. Medical Decision The differential diagnosis includes urinary tract infection, kidney stone, neoplasm, fibroid, laceration, anemia, among others Blood Pressure Screening Patient's blood pressure: Elevated blood pressure Blood pressure disposition: Elevated BP felt to be situational Impression Primary Impression: Uterine fibroid Additional Impression: Post-menopausal bleeding Departure Information Dispostion Home / Self-Care Condition GOOD Referrals [place] Nicolas M.D. (PCP) Shannon Teixeira M.D. Patient Instructions ED Fibroids, My [facility] Additional Instructions Contact DESIGN PRINTER [employer]ON today to schedule a follow up appointment for further evaluation and management Return with worsening bleeding, pain, generalized worsening symptoms Problem Qualifiers Primary Impression: Uterine fibroid
[2017-05-05 13:30] LABS: URINE APPEARANCE CLEAR (CLEAR); URINE BILIRUBIN NEG (NEG); URINE COLOR YELLOW; URINE NITRITE NEG (NEG); URINE PH 6.5 (4.5-7.5); URINE SPECIFIC GRAVITY 1.018 (1.000-1.030); UROBILINOGEN NEG (NEG); ZZUR CULT IF INDIC CLEAN CATCH NO
[2017-05-05 13:39] LABS: BUN/CREATININE RATIO 19.5 (10-20); CALCIUM 10.6 mg/dl (8.5-10.1); CREATININE 1.1 mg/dl (0.60-1.20); POTASSIUM 3.7 mmol/L (3.5-5.1)
[2017-05-05 13:40] LABS: MANUAL MICROSCOPIC REQUIRED? NO; REVIEW REQ? NO
[2017-05-05 13:42] LABS: ALB/GLOB RATIO 1.2 (0.9-2)
[2017-05-05 13:54] LABS: PARTIAL THROMBOPLASTIN RATIO 0.9; PROTHROMBIN TIME (PATIENT) 10.2 SECONDS (9.0-12.0)
--- NOTE | 2017-05-05 14:03 | DIAGNOSTIC IMAGING REPORT ---
PELVIC COMPLETE NON OB CLINICAL HISTORY: postmenopausal vaginal bleeding BLEEDING COMPARISON STUDY: None FINDINGS: The uterus measured 7.5 cm.. Several small myometrial fibroids measuring 1.1 and 1.4 cm. The endometrial stripe measured 6 mm.. The right ovary measured not well seen. The left ovary measured not well seen. There is no ultrasonographic evidence of ovarian torsion. It should be noted that ovarian torsion can be present with normal Doppler ultrasonographic findings. There was no evidence of pathologic free pelvic fluid. IMPRESSION: 2 small uterine fibroids. Mild endometrial prominence for age at 6 mm. Ovarian atrophy The above report was generated using voice recognition software. It may contain grammatical, syntax or spelling errors. Electronically signed by: Carlin Bajwa M.D. 05/05/2017 2:01 PM Dictated Date/Time: 05/05/2017 2:00 PM
[2017-05-05 14:04] VITALS: BP 147/89; PULSE 51; O2SAT 98
--- NOTE | 2017-05-05 14:10 | EMERGENCY ROOM VISIT NOTE ---
ED Visit Note First contact with patient: 12:28 I have seen and examined this patient with Lenora Narvaez and generally agree with the treatment plan as discussed. Problem List Medical Problems: (1) Asthma Status: Chronic (2) CARDIOMEGALY Status: Chronic (3) DIAB ELLEN WO COMPL, TYPE II OR UNSPEC TYPE, NOT UNCNTRLD Status: Chronic (4) Elbow fracture, right Status: Resolved (5) HYPERLIPIDEMIA NEC/NOS Status: Chronic (6) HYPERTENSION NOS Status: Chronic (7) HYPOTHYROIDISM NOS Status: Chronic (8) OBESITY, NOS Status: Chronic Surgical Problems: (1) H/O umbilical hernia repair Status: Resolved (2) H/O wisdom tooth extraction Status: Resolved (3) S/p total knee replacement, bilateral Status: Resolved (4) Tarsal tunnel syndrome Status: Resolved Current/Historical Medications Scheduled Fluticasone Propionate (Flovent Hfa), 2 PUFFS INH HS Gabapentin (Gabapentin), 800 MG PO BID L-Methylfolate W/ Algae-Vitami (Metanx), 1 TAB PO BID Levothyroxine Sodium (Synthroid), 250 MCG PO 2XWK Levothyroxine Sodium (Synthroid), 125 MCG PO 5XD Lisinopril (Zestril), 40 MG PO QAM Triamterene/Hctz (Dyazide 37.5MG/25MG), 1 CAP PO QAM Scheduled PRN Amoxicillin (Amoxil), 4 CAP PO UD PRN for PRE DENTAL PROCEDURE Prednisone Tab (Prednisone), 10 MG PO DIRECTED PRN for Pain Allergies Coded Allergies: Latex1 -Allergic Contact Dermititis (Unverified Allergy, Intermediate, LITE RED RASH, 05/05/17) NO KNOWN DRUG ALLERGIES (Verified Allergy, Unknown, ., 03/05/17) Adhesives (Verified Adverse Reaction, Mild, RASH, 03/05/17) Vital Signs Date Time Temp Pulse Resp B/P (MAP) Pulse Ox O2 Delivery O2 Flow Rate FiO2 05/05/17 14:04 51 18 147/89 98 05/05/17 12:23 36.6 68 16 139/79 95 Room Air Laboratory Results 05/05/17 13:08 Red Blood Count 4.86, Mean Corpuscular Volume 94.0, Mean Corpuscular Hemoglobin 30.9, Mean Corpuscular Hemoglobin Concent 32.8, Mean Platelet Volume 9.8, Neutrophils (%) (Auto) 58.4, Lymphocytes (%) (Auto) 29.9, Monocytes (%) (Auto) 8.7, Eosinophils (%) (Auto) 2.2, Basophils (%) (Auto) 0.6, Neutrophils # (Auto) 5.49, Lymphocytes # (Auto) 2.81, Monocytes # (Auto) 0.82, Eosinophils # (Auto) 0.21, Basophils # (Auto) 0.06 05/05/17 13:08 Test 05/05/17 13:08 05/05/17 13:10 White Blood Count 9.41 K/uL (4.8-10.8) Red Blood Count 4.86 M/uL (4.2-5.4) Hemoglobin 15.0 g/dL (12.0-16.0) Hematocrit 45.7 % (37-47) Mean Corpuscular Volume 94.0 fL (80-100) Mean Corpuscular Hemoglobin 30.9 pg (25-34) Mean Corpuscular Hemoglobin Concent 32.8 g/dl (32-36) Platelet Count 224 K/uL (130-400) Mean Platelet Volume 9.8 fL (7.4-10.4) Neutrophils (%) (Auto) 58.4 % Lymphocytes (%) (Auto) 29.9 % Monocytes (%) (Auto) 8.7 % Eosinophils (%) (Auto) 2.2 % Basophils (%) (Auto) 0.6 % Neutrophils # (Auto) 5.49 K/uL (1.4-6.5) Lymphocytes # (Auto) 2.81 K/uL (1.2-3.4) Monocytes # (Auto) 0.82 K/uL (0.11-0.59) Eosinophils # (Auto) 0.21 K/uL (0-0.5) Basophils # (Auto) 0.06 K/uL (0-0.2) RDW Standard Deviation 49.6 fL (36.4-46.3) RDW Coefficient of Variation 14.4 % (11.5-14.5) Immature Granulocyte % (Auto) 0.2 % Immature Granulocyte # (Auto) 0.02 K/uL (0.00-0.02) Prothrombin Time 10.2 SECONDS (9.0-12.0) Prothromb Time International Ratio 1.0 (0.9-1.1) Activated Partial Thromboplast Time 24.0 SECONDS (21.0-31.0) Partial Thromboplastin Ratio 0.9 Anion Gap 6.0 mmol/L (3-11) Est Creatinine Clear Calc Drug Dose 63.3 ml/min Estimated GFR () 58.1 Estimated GFR (Non- 50.1 BUN/Creatinine Ratio 19.5 (10-20) Calcium Level 10.6 mg/dl (8.5-10.1) Total Bilirubin 0.6 mg/dl (0.2-1) Aspartate Amino Transf (AST/SGOT) 22 U/L (15-37) Alanine Aminotransferase (ALT/SGPT) 33 U/L (12-78) Alkaline Phosphatase 79 U/L (45-117) Total Protein 7.6 gm/dl (6.4-8.2) Albumin 4.1 gm/dl (3.4-5.0) Globulin 3.5 gm/dl (2.5-4.0) Albumin/Globulin Ratio 1.2 (0.9-2) Urine Color YELLOW Urine Appearance CLEAR (CLEAR) Urine pH 6.5 (4.5-7.5) Urine Specific [place] 1.018 (1.000-1.030) Urine Protein NEG (NEG) Urine Glucose (UA) NEG (NEG) Urine Ketones TRACE (NEG) Urine Occult Blood 2+ (NEG) Urine Nitrite NEG (NEG) Urine Bilirubin NEG (NEG) Urine Urobilinogen NEG (NEG) Urine Leukocyte Esterase NEG (NEG) Urine WBC (Auto) 1-5 /hpf (0-5) Urine RBC (Auto) 10-30 /hpf (0-4) Urine Hyaline Casts (Auto) 0 /lpf (0-5) Urine Epithelial Cells (Auto) 10-20 /lpf (0-5) Urine Bacteria (Auto) NEG (NEG) Departure Information Referrals [place] Nicolas M.D. (PCP) Patient Instructions My [facility]
== END 2017-05-05 14:29 | disposition home or self-care (01) ==
LOC: C.EDB 12:22 → C.EDC 14:29
DX: D25.9 Leiomyoma of uterus, unspecified (principal); N95.0 Postmenopausal bleeding; J45.909 Unspecified asthma, uncomplicated; E11.9 Type 2 diabetes mellitus without complications; I10 Essential (primary) hypertension; E03.9 Hypothyroidism, unspecified; Z96.653 Presence of artificial knee joint, bilateral; Z98.818 Other dental procedure status; Z98.890 Other specified postprocedural states; Z79.899 Other long term (current) drug therapy

== ENCOUNTER → 2017-05-08 | Outpatient (CLI) | payer OTHER | END | disposition home or self-care (01) | LOC: C.PATHSPEC 13:48 | PROVIDERS: ATTEND Obstetrics & Gynecology | DX: N95.0 Postmenopausal bleeding (principal) ==

== ENCOUNTER → 2017-07-23 | Outpatient (CLI) | payer OTHER | END | disposition home or self-care (01) | LOC: C.LABBFT 08:52 | PROVIDERS: ATTEND Internal Medicine | DX: G62.9 Polyneuropathy, unspecified (principal) ==

== ENCOUNTER → 2017-08-06 | Outpatient (CLI) | payer OTHER | END | disposition home or self-care (01) | LOC: C.LABBFT 11:12 | PROVIDERS: ATTEND Nurse Practitioner | DX: N39.0 Urinary tract infection, site not specified (principal) ==

== ENCOUNTER → 2017-09-10 | Outpatient (CLI) | payer OTHER ==
[~2017-09-10] MED LIST changes: -AMOX500C3 PO
--- NOTE | 2017-09-10 07:54 | MAMMOGRAPHY REPORT ---
BILATERAL DIGITAL SCREENING MAMMOGRAM WITH CAD: 09/10/2017 TECHNIQUE: Current study was also evaluated with a Computer Aided Detection (CAD) system. Bilateral CC and MLO views were obtained. COMPARISON: Comparison is made to exams dated: 09/17/2016 mammogram, 09/08/2016 mammogram, 08/31/2015 mammogram, 08/29/2014 mammogram, 08/24/2013 mammogram, and 08/18/2012 mammogram - [facility]. BREAST COMPOSITION: There are scattered areas of fibroglandular density in both breasts. FINDINGS: No suspicious masses, calcifications, or areas of architectural distortion are noted in ei ther breast. There has been no significant interval change compared to prior exams. IMPRESSION: ACR BI-RADS CATEGORY 1: NEGATIVE There is no mammographic evidence of malignancy. A 1 year screening mammogram is recommended. The pa tient will receive written notification of the results. Approximately 10% of breast cancers are not detected with mammography. A negative mammographic report should not delay biopsy if a clinically suggestive mass is present. Radha Kumar M.D. ah/:09/10/2017 07:39:28 Turntable Engineer: Janina THAPA(Abimael)(Trev), [facility] letter sent: Normal 1/2 BI-RADS Code: ACR BI-RADS Category 1: Negative
== END | disposition home or self-care (01) ==
LOC: C.MAMM 07:18
PROVIDERS: ATTEND Obstetrics & Gynecology
DX: Z12.31 Encounter for screening mammogram for malignant neoplasm of breast (principal)

== ENCOUNTER → 2017-09-23 | Outpatient (CLI) | payer OTHER ==
[2017-09-23 12:36] LABS: HEMATOCRIT 41.9 % (37-47); MEAN CELL VOLUME 94.2 fL (80-100); MEAN CORPUSCULAR HEMOGLOBIN 31.5 pg (25-34); MEAN CORPUSCULAR HGB CONC 33.4 g/dl (32-36); MEAN PLATELET VOLUME 10.4 fL (7.4-10.4); PLATELET COUNT 183 K/uL (130-400); RED BLOOD COUNT 4.45 M/uL (4.2-5.4)
[2017-09-23 12:53] LABS: ALT/SGPT 34 U/L (12-78); BLOOD UREA NITROGEN 19 mg/dl (7-18); BUN/CREATININE RATIO 20.1 (10-20); CALCIUM 9.6 mg/dl (8.5-10.1); CARBON DIOXIDE 28 mmol/L (21-32); CHLORIDE 103 mmol/L (98-107); CHOLESTEROL 146 mg/dl (0-200); CREATININE 0.97 mg/dl (0.60-1.20); GLUCOSE 128 mg/dl (70-99); POTASSIUM 3.8 mmol/L (3.5-5.1); SODIUM 137 mmol/L (136-145); TRIGLYCERIDES 161 mg/dl (0-150); VERY LOW DENSITY LIPOPROT CALC 32 mg/dl
[2017-09-23 13:01] LABS: CREATININE RANDOM URINE 58.4 mg/dl
[2017-09-23 13:03] LABS: ALB/GLOB RATIO 1.1 (0.9-2); ALKALINE PHOSPHATASE 74 U/L (45-117); AST/SGOT 24 U/L (15-37); CHOLESTEROL/HDL RATIO 2.7; ESTIMATED AVERAGE GLUCOSE 140 mg/dl; HA1C FLAG Normal (Normal); HDL CHOLESTEROL 54 mg/dl; LDL CHOLESTEROL CALCULATED 60 mg/dl; THYROID STIMULATING HORMONE 0.301 uIu/ml (0.300-4.500)
== END | disposition home or self-care (01) ==
LOC: C.LABBFT 09:39
PROVIDERS: ATTEND Internal Medicine
DX: E11.9 Type 2 diabetes mellitus without complications (principal); E03.9 Hypothyroidism, unspecified

== ENCOUNTER → 2017-12-24 | Outpatient (CLI) | payer OTHER ==
--- NOTE | 2017-12-24 12:03 | DIAGNOSTIC IMAGING REPORT ---
THORACIC SPINE 3 VIEWS ROUTINE HISTORY: Pain THORACIC FACET SYNDROME COMPARISON: None. FINDINGS: There is no fracture. Mild scoliosis. Moderate to rather significant degenerative disc changes throughout. No evidence for subluxation. Significant anterior osteophytic and anterolateral osteophytic reaction from T10 through T12. IMPRESSION: Moderate to rather significant degenerative change. No acute process. The above report was generated using voice recognition software. It may contain grammatical, syntax or spelling errors. Electronically signed by: Carlin Bajwa M.D. 12/24/2017 12:01 PM Dictated Date/Time: 12/24/2017 11:59 AM
== END | disposition home or self-care (01) ==
LOC: C.RADBC 11:42
PROVIDERS: ATTEND Physician Assistant Medical
DX: M54.6 Pain in thoracic spine (principal)

== ENCOUNTER → 2018-05-07 | Outpatient (CLI) | payer OTHER ==
[~2018-05-07] MED LIST changes: +CEPH-571 PO; -PRED10TA PO; +RIVA1.5T PO
[2018-05-07 18:01] LABS: BLOOD UREA NITROGEN 19 mg/dl (7-18); CALCIUM 9.6 mg/dl (8.5-10.1); CARBON DIOXIDE 26 mmol/L (21-32); CREATININE 1.24 mg/dl (0.60-1.20); GLUCOSE 136 mg/dl (70-99); POTASSIUM 3.9 mmol/L (3.5-5.1); SODIUM 137 mmol/L (136-145)
== END | disposition home or self-care (01) ==
LOC: C.LABBFT 11:10
PROVIDERS: ATTEND Nurse Practitioner Adult Health
DX: R60.9 Edema, unspecified (principal)

== ENCOUNTER → 2018-05-18 | Outpatient (CLI) | payer OTHER ==
[~2018-05-18] MED LIST changes: -CEPH-571 PO
[2018-05-18 12:44] LABS: BLOOD UREA NITROGEN 20 mg/dl (7-18); CALCIUM 9.3 mg/dl (8.5-10.1); CARBON DIOXIDE 25 mmol/L (21-32); CREATININE 0.95 mg/dl (0.60-1.20); GLUCOSE 178 mg/dl (70-99); POTASSIUM 3.8 mmol/L (3.5-5.1); SODIUM 139 mmol/L (136-145)
== END | disposition home or self-care (01) ==
LOC: C.LABBFT 08:28
PROVIDERS: ATTEND Nurse Practitioner Adult Health
DX: N28.9 Disorder of kidney and ureter, unspecified (principal); I10 Essential (primary) hypertension